=== PATIENT | female | born 1950 | race Caucasian/White ===

== ENCOUNTER 2018-12-09 16:11 | Emergency (ER) | payer MEDICAID, OTHER ==
[~2018-12-09] VITALS: Ht 152.4 cm; Wt 78.0 kg
[2018-12-09 16:28] VITALS: BP 143/80
--- NOTE | 2018-12-09 16:45 | NUR ---
BIB DAUGHTER PT C/O ANXIETY STARTING 1 WEEK AGO WHEN EX . PT REPORTS WEAKNESS RADIATING FROM TOP OF LEGS DOWN TO BILAT FEET AND SHAKING. PT ALSO STATES HAVING UTI SX OF FREQUENCY, URGENCY, AND BURNING SENSATION OF URINATION. DENIES N/V/D; SKIN IS PINK/WARM/DRY; AAOX4; PT DENIES ANY FEVER, CP, SOB, OR COUGH AT THIS TIME; PATIENT STATES LOWER BACK PAIN OF 7/10 AT THIS TIME; VSS; PATIENT POSITIONED FOR COMFORT; HOB ELEVATED; BEDRAILS UP X1; BED DOWN. ER MD MADE AWARE OF PT STATUS. DAUGHTER IS AT BEDSIDE.
[2018-12-09] MEDS ORDERED: ALPRAZolam 0.5 MG TAB PO ONE (17:45)
[2018-12-09] MEDS ORDERED: cefTRIAXone 500 MG in LIDOCAINE MPF 1% - 5 mL VIAL 1 ML IM ONE (17:45)
[2018-12-09 18:26] VITALS: BP 164/73
--- NOTE | 2018-12-09 18:26 | NUR ---
Patient discharged with v/s stable. Written and verbal after care instructions given and explained. Patient alert, oriented and verbalized understanding of instructions. Ambulatory with steady gait. All questions addressed prior to discharge. ID band removed. Patient advised to follow up with PMD. Rx of Ibuprofen, Pantoprazole, Citalopram, and Keflex given. Patient educated on indication of medication including possible reaction and side effects. Opportunity to ask questions provided and answered.
== END 2018-12-09 18:26 | disposition home or self-care (01) ==
LOC: MED 16:11
DX: F41.9 Anxiety disorder, unspecified (principal); F32.9 Major depressive disorder, single episode, unspecified; R30.0 Dysuria; M54.5 Low back pain; E11.9 Type 2 diabetes mellitus without complications; I10 Essential (primary) hypertension; E78.5 Hyperlipidemia, unspecified; Z98.890 Other specified postprocedural states
CPT/HCPCS: 81002; 96372; 99283; J0696; J2001

== ENCOUNTER 2019-01-15 12:11 | Emergency (ER) | payer OTHER ==
[~2019-01-15] VITALS: Ht 152.4 cm; Wt 78.5 kg
[2019-01-15 12:16] VITALS: BP 151/66
--- NOTE | 2019-01-15 12:29 | NUR ---
PT AMBULATED TO ER BED 08
--- NOTE | 2019-01-15 12:41 | NUR ---
68F C/O PAINFUL URINATION WITH URINARY FREQUENCY X2 WEEKS. STATES FOUL ODOR TO URINE. DENIES FEVER, N/V/D. HX HTN, DM, HYPERLIPIDEMIA, DEPRESSION, ANXIETY
[2019-01-15 12:46] VITALS: BP 151/66
--- NOTE | 2019-01-15 12:46 | NUR ---
Patient discharged with v/s stable. Written and verbal after care instructions given and explained. Patient alert, oriented and verbalized understanding of instructions. Ambulatory with steady gait. All questions addressed prior to discharge. ID band removed. Patient advised to follow up with PMD. Rx of Macrobid 100mg given. Patient educated on indication of medication including possible reaction and side effects. Opportunity to ask questions provided and answered.
--- NOTE | 2019-01-15 12:46 | NUR ---
Upon discharging patient, patient requesting to have a prescription for Protonix 40mg and Motrin 800mg for her "back pain and leg pain." Dr. Mesa made aware, prescriptions provided to patient.
== END 2019-01-15 12:46 | disposition home or self-care (01) ==
LOC: MED 12:11
DX: N39.0 Urinary tract infection, site not specified (principal); F41.9 Anxiety disorder, unspecified; F32.9 Major depressive disorder, single episode, unspecified; E11.9 Type 2 diabetes mellitus without complications; I10 Essential (primary) hypertension
CPT/HCPCS: 81002; 99283